=== PATIENT | male | born 1995 | race Caucasian/White ===

== ENCOUNTER 2017-06-26 14:32 | Emergency (ER) | payer OTHER, BC ==
[2017-06-26 14:51] VITALS: BP 116/69
== END 2017-06-26 20:26 | disposition left against medical advice (07) ==
LOC: ED 14:32
DX: Z53.21 Procedure and treatment not carried out due to patient leaving prior to being seen by health care provider (principal)

== ENCOUNTER 2018-04-07 02:04 | Emergency (ER) | payer BC ==
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
[2018-04-07] MEDS ORDERED: MORPHINE IV ONE (02:20)
[2018-04-07] MEDS ORDERED: ZOFRAN IV ONE (02:20)
[2018-04-07] MEDS ORDERED: BOOSTRIX IM ONE (02:21)
[2018-04-07] MEDS ORDERED: NACL 0.9% 1000 ML 1,000 ML IV ONE (02:21)
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
[2018-04-07] MEDS ORDERED: ceFAZolin 2 GM in NACL 0.9% 100 ML IV ONE (03:00)
[2018-04-07 03:08] LABS: BUN/Creatinine Ratio 14; Blood Urea Nitrogen 14 mg/dL (9-20); Calcium 9.2 mg/dL (8.4-10.2); Hemolysis Index 27
[2018-04-07 03:25] LABS: Hematocrit 42.4 % (35.5-45.6); Hemoglobin 14.1 gm/dl (11.8-15.2); Mean Corpuscular HGB Conc 33 % (32-34); Mean Corpuscular Hemoglobin 29 pg (28-32); Mean Corpuscular Volume 88 fl (84-94); Red Cell Distribution Width 12.6 % (13.2-15.2)
[2018-04-07 03:26] LABS: Basophils # (Auto) 0.1 K/mm3 (0.0-0.1); Basophils % (Auto) 0.9 % (0.0-1.8); Eosinophils % (Auto) 0.3 % (0.0-4.3); Lymphocytes # (Auto) 3.6 K/mm3 (1.2-5.4); Lymphocytes % (Auto) 28.9 % (13.4-35.0); Mean Platelet Volume 9.3 fl (6-12); Monocytes # (Auto) 0.9 K/mm3 (0.0-0.8); Monocytes % (Auto) 6.8 % (0.0-7.3); Platelet Count 187 K/mm3 (140-440)
[2018-04-07 04:01] VITALS: BP 110/68
== END 2018-04-07 04:10 | disposition home or self-care (01) ==
LOC: ED 02:04
DX: S31.829A Unspecified open wound of left buttock, initial encounter (principal); X58.XXXA Exposure to other specified factors, initial encounter; Y93.89 Activity, other specified; Y92.89 Other specified places as the place of occurrence of the external cause; Y99.8 Other external cause status
CPT/HCPCS: 36415; 72170; 80048; 85025; 90471; 90715; 96361; 96365; 96375; 99284; J0690; J2270; J2405; J7030